=== PATIENT | female | born 1930 | race Caucasian/White ===

== ENCOUNTER 2017-09-14 00:52 | Emergency (ER) | payer MEDICARE ==
--- NOTE | 2017-09-14 01:34 | ED ---
Adult Trauma - HPI Summary HPI Summary: 86-year-old female with the past medical history of dementia presents to the fall today. fall was unwitnessed. She is on Lovenox. She is denying any pain at this time. She is denying any chest pain shortness breath. She states she does not know why she fell. [facility] sent her up due to being on blood thinners. No belly pain. She denies any back pain or neck pain. She has history of falls. She is at her baseline neurologically. - History of Current Complaint Chief Complaint: EDGeneral Stated Complaint: FALL Time Seen by Provider: 09/14/17 01:15 Pain Intensity: 0 - Additional Pertinent History Primary Care Physician: [id number] - Allergy/Home Medications Allergies/Adverse Reactions: Allergies Allergy/AdvReac Type Severity Reaction Status Date / Time No Known Allergies Allergy Verified 02/03/16 00:17 PMH/Surg Hx/FS Hx/Imm Hx Endocrine/Hematology History: Reports: Hx Anticoagulant Therapy Denies: Hx Thyroid Disease Cardiovascular History: Reports: Hx Hypercholesterolemia, Hx Hypertension, Hx Valvular Heart Disease - MVP Denies: Hx Coronary Artery Disease, Hx Myocardial Infarction History: Reports: Hx Renal Disease - abnormal gfr's Denies: Hx Chronic Renal Failure Sensory History: Denies: Hx Contacts or Glasses, Hx Hearing Aid Opthamlomology History: Denies: Hx Contacts or Glasses Neurological History: Reports: Hx Dementia Psychiatric History: Reports: Hx Depression - Cancer History Hx Chemotherapy: No Hx Radiation Therapy: No - Surgical History Surgery Procedure, Year, and Place: NOT TO AFFECTED AREA - Immunization History Date of Tetanus Vaccine: utd Date of Influenza Vaccine: 2015 Infectious Disease History: No Infectious Disease History: Denies: Traveled Outside the [place] in Last 30 Days - Family History Known Family History: Positive: Other Family History: Hx Colon CA in sister - Social History Alcohol Use: None Substance Use Type: Reports: None Hx Tobacco Use: Yes Smoking Status (MU): Former Smoker Type: Cigarettes Review of Systems Negative: Fever Negative: Chest Pain Negative: Shortness Of Breath Negative: Abdominal Pain All Other Systems Reviewed And Are Negative: Yes Physical Exam Triage Information Reviewed: Yes Vital Signs On Initial Exam: Initial Vitals Temp Pulse Resp BP Pulse Ox 98.4 F 88 16 144/75 93 09/14/17 00:54 09/14/17 00:54 09/14/17 00:54 09/14/17 00:54 09/14/17 00:54 Vital Signs Reviewed: Yes Appearance: Positive: Well-Appearing Skin: Positive: Warm, Dry Head/Face: Positive: Normal Head/Face Inspection, Other - No step off, raccoon eyes, ramirez sign Eyes: Positive: Normal, EOMI, SAMANTHA, Conjunctiva Clear ENT: Positive: Pharynx normal Respiratory/Lung Sounds: Positive: Clear to Auscultation, Breath Sounds Present Cardiovascular: Positive: Normal, RRR Musculoskeletal: Positive: Normal Neurological: Positive: Sensory/Motor Intact, CN Intact II-III. Negative: Alert , Oriented to Person Place, Time Psychiatric: Positive: Normal Diagnostics - Vital Signs Vital Signs Temp Pulse Resp BP Pulse Ox 09/14/17 00:54 98.4 F 88 16 144/75 93 - Laboratory Lab Statement: Any lab studies that have been ordered have been reviewed, and results considered in the medical decision making process. Adult Trauma Course/Dx - Course Course Of Treatment: 86-year-old female with the past medical history of dementia presents to the fall today. fall was unwitnessed. She is on Lovenox. She is denying any pain at this time. She is denying any chest pain shortness breath. She states she does not know why she fell. [facility] sent her up due to being on blood thinners. No belly pain. She denies any back pain or neck pain. She has history of falls. She is at her baseline neurologically. On exam patient is alert to person and place not oriented to time. Has normal neuro exam. nontender neck and back. She has full range of motion of hips. Nontender chest abdomen. patient signed out to dr araiza pending CT of brain and neck for disposition - Diagnoses Differential Diagnosis/HQI/PQRI: Positive: Contusion(s), Fracture, Dislocation Provider Diagnoses: Fall Discharge - Sign-Out/Discharge Documenting (check all that apply): Sign-Out Patient Signing out patient TO: Radha Araiza - Discharge Plan Patient Education Materials: Fall Prevention for Older Adults (ED) Referrals: No Primary Care Phys,NOPCP [Primary Care Provider] - Additional Instructions: Follow up with primary about falls within 5 days Take Tylenol as needed for pain every 6 hours Return to ED if develop any new or worsening symptoms
--- NOTE | 2017-09-14 03:52 | ED ---
Progress - Progress Note Progress Note: CT BRAIN: IMPRESSION: 1. NO CT EVIDENCE FOR AN ACUTE INTRACRANIAL PROCESS. 2. PERIVENTRICULAR AND SUBCORTICAL WHITE MATTER CHANGES, WHICH ARE LIKELY THE SEQUELA OF CHRONIC SMALL VESSEL ISCHEMIC INJURY. GCS: 14 CT CERVICAL SPINE: IMPRESSION: 1. NO FRACTURE IN THE CERVICAL SPINE. 2. C5-C6: MINIMAL RIGHT NEURAL FORAMINAL STENOSIS. 3. C6-C7: MODERATE TO SEVERE RIGHT NEURAL FORAMINAL STENOSIS. Course/Dx - Course Course Of Treatment: 86-year-old female with the past medical history of dementia presents to the fall today. fall was unwitnessed. She is on Lovenox. She is denying any pain at this time. She is denying any chest pain shortness breath. She states she does not know why she fell. [facility]. No belly pain. She denies any back pain or neck pain. She has history of falls. She is at her baseline neurologically. On exam patient is alert to person and place not oriented to time. Has normal neuro exam. nontender neck and back. She has full range of motion of hips. Nontender chest abdomen. patient signed out to dr alford pending CT of brain and neck for disposition - Diagnoses Provider Diagnoses: Fall, Anticoagulant long-term use, Dementia Discharge - Sign-Out/Discharge Documenting (check all that apply): Patient Departure - DISCHARGE - Discharge Plan Condition: Stable Disposition: HOME Patient Education Materials: Fall Prevention for Older Adults (ED) Referrals: Loreto Perdomo NP [Nurse Practitioner] - 5 Days Additional Instructions: Follow up with primary about falls within 5 days Take Tylenol as needed for pain every 6 hours Return to ED if develop any new or worsening symptoms
[2017-09-14 04:28] VITALS: BP 147/74
--- NOTE | 2017-09-14 08:56 | RAD ---
HISTORY: fall, on lovenox COMPARISONS: None TECHNIQUE: Multiple contiguous axial CT scans were obtained of the head without intravenous contrast. FINDINGS: HEMORRHAGE/INFARCT: There is no hemorrhage or acute infarct. MASSES/SHIFT: There is no mass or shift. EXTRA-AXIAL SPACES: There are no extra-axial fluid collections. SULCI AND VENTRICLES: There is diffuse and proportional enlargement of the sulci and ventricles. CEREBRUM: There is hypoattenuation of the periventricular and subcortical white matter. BRAINSTEM: There are no focal parenchymal abnormalities. CEREBELLUM: There are no focal parenchymal abnormalities. VESSELS: The vessels are grossly normal. PARANASAL SINUSES: The paranasal sinuses are clear. ORBITS: The orbits are unremarkable. BONES AND SOFT TISSUE: No bone or soft tissue abnormalities are noted. OTHER: None IMPRESSION: NO ACUTE INTRACRANIAL PATHOLOGY. DIFFUSE INVOLUTIONAL CHANGE WITH CHRONIC SMALL VESSEL ISCHEMIC CHANGES. R0
--- NOTE | 2017-09-14 09:10 | RAD ---
HISTORY: fall, no other history is provided COMPARISONS: August 14, 2017 TECHNIQUE: Multiple contiguous axial CT scans were obtained of the cervical spine without intravenous contrast, with coronal and sagittal multiplanar reformations. FINDINGS: BRAIN: The visualized brain is unremarkable CENTRAL CANAL: Evaluation of the central canal is limited on CT technique; however, there is no obvious canalicular mass or epidural hemorrhage. ALIGNMENT: There is straightening with reversal of the normal cervical lordosis. There is trace anterolisthesis of C3 on C4 and C4 on C5. VERTEBRAL BODIES: There is diffuse osteopenia. There is no displaced fracture. There is anterolateral marginal osteophyte formation with reactive endplate changes at C5-C6 and C6-C7. JOINTS: There is uncovertebral and facet osteoarthritis. MUSCULATURE: Unremarkable INTERVERTEBRAL DISCS: There is diffuse loss of intervertebral disc height. AXIAL IMAGES: On axial images, there is neural foraminal narrowing bilaterally at C5-C6 and C6-C7. There is no osseous central canal stenosis. SOFT TISSUES: The visualized soft tissues of the neck are unremarkable. The prevertebral fat stripe is preserved. OTHER: None. IMPRESSION: 1. OSTEOPENIA. 2. DEGENERATIVE DISC DISEASE AND OSTEOARTHRITIS. 3. NO ACUTE OSSEOUS INJURY TO THE CERVICAL SPINE. R0
== END 2017-09-14 04:20 | disposition home or self-care (01) ==
LOC: ED 00:52
DX: Z04.3 Encounter for examination and observation following other accident (principal); M85.88 Other specified disorders of bone density and structure, other site; M50.30 Other cervical disc degeneration, unspecified cervical region; F03.90 Unspecified dementia, unspecified severity, without behavioral disturbance, psychotic disturbance, mood disturbance, and anxiety; Z79.01 Long term (current) use of anticoagulants; Z80.0 Family history of malignant neoplasm of digestive organs; Z87.891 Personal history of nicotine dependence
CPT/HCPCS: 70450; 72125; 99283

== ENCOUNTER 2018-05-12 10:00 | Emergency (ER) | payer MEDICARE ==
[2018-05-12] MEDS ORDERED: ED Piperacillin/Tazobac 3.375 3.375 GM/100 ML PREMIX.SET IVPB ONE (10:09)
[2018-05-12] MEDS ORDERED: ceFAZolin 2 GM in NS PREMIX(*) 2 GM/100 ML BAG IVPB ONE (10:09)
[2018-05-12] MEDS ORDERED: NS 0.9% 1000 ML** 1,000 ML IV.FLUID IV ONE (10:17)
[2018-05-12 10:39] LABS: ABS Basophils 0 10^3/ul (0-0.2); ABS Eosinophils 0.2 10^3/ul (0-0.6); ABS Monocytes 0.4 10^3/ul (0-0.8); ABS Neutrophils 3.8 10^3/ul (1.5-7.7); ABS Nucleated RBC 0 10^3/ul; Eosinophil % 3.9 %; Hematocrit 34 % (33-41); Hemoglobin 10.8 g/dL (12.0-16.0); Lymphocyte % 18.8 %; Mean Corpuscular HGB Conc 32 g/dL (31-36); Mean Corpuscular Hemoglobin 29 pg (27-31); Mean Corpuscular Volume 89 fL (80-97); Mean Platelet Volume 8.8 fL (7.4-10.4); Nucleated Red Blood Cells % 0.2; Platelet Count 137 10^3/uL (150-450); Red Blood Count 3.77 10^6 /uL (3.70-4.87); Red Cell Distribution Width 20 % (10.5-15); White Blood Count 5.4 10^3/uL (3.5-10.8)
[2018-05-12 10:48] LABS: INR 1.06 (0.77-1.02)
[2018-05-12 10:55] LABS: Albumin 2.1 g/dL (3.2-5.2); Albumin/Globulin Ratio 0.8 (1-3); BUN/Creatinine Ratio 16.4 (8-20); Calcium 7.4 mg/dL (8.6-10.3); EGFR African American 100.7 (>60); EGFR Non-African American 83.3 (>60); Globulin 2.6 g/dL (2-4); Potassium 3.4 mmol/L (3.5-5.0); Total Bilirubin 0.3 mg/dL (0.2-1.0); Total Protein 4.7 g/dL (6.4-8.9)
--- NOTE | 2018-05-12 11:17 | ED ---
HPI Cardiac - HPI Summary HPI Summary: Patient is an 87-year-old female presenting to the ED from [facility] with family at bedside. Family states they were called early this morning as patient was being transported via EMS to the ED for low BP. It was not told how low this was, however they stated "she should not be talking." On arrival, she is noted to have a normal BP at 126/52. She was also noted to be 99.2 on arrival. Respirations 26, 96% on room air and 76 HR. patient denies any symptoms. Patient denies cough, CP, SOB, urinary symptoms, back pain, abdominal pain, headache, fatigue, weakness. She endorses her normal amount of fatigue and family states she is acting at her baseline. - History of Current Complaint Chief Complaint: EDGeneral Stated Complaint: LOW BP PER EMS Hx Obtained From: Patient, Family/Ux Manager Onset/Duration: Started Hours Ago Timing: Constant Initial Severity: Moderate Current Severity: None Pain Intensity: 0 Pain Scale Used: 0-10 Numeric Chest Pain Radiates: No Aggravating Factor(s): Nothing Alleviating Factor(s): Nothing Associated Signs and Symptoms: Positive: Negative Related History: Healthcare Acquired Pneumonia: Lives at [facility] - Additional Pertinent History Primary Care Physician: [id number] - Allergy/Home Medications Allergies/Adverse Reactions: Allergies Allergy/AdvReac Type Severity Reaction Status Date / Time No Known Allergies Allergy Verified 05/12/18 10:07 PMH/Surg Hx/FS Hx/Imm Hx Previously Healthy: Yes Endocrine/Hematology History: Reports: Hx Anticoagulant Therapy Denies: Hx Thyroid Disease Cardiovascular History: Reports: Hx Hypercholesterolemia, Hx Hypertension, Hx Valvular Heart Disease - MVP Denies: Hx Coronary Artery Disease, Hx Myocardial Infarction History: Reports: Hx Renal Disease - abnormal gfr's Denies: Hx Chronic Renal Failure Sensory History: Denies: Hx Contacts or Glasses, Hx Hearing Aid Opthamlomology History: Denies: Hx Contacts or Glasses Neurological History: Reports: Hx Dementia Psychiatric History: Reports: Hx Depression - Cancer History Hx Chemotherapy: No Hx Radiation Therapy: No - Surgical History Surgery Procedure, Year, and Place: NOT TO AFFECTED AREA - Immunization History Date of Tetanus Vaccine: utd Date of Influenza Vaccine: 2015 Hx Pertussis Vaccination: Yes Immunizations Up to Date: Yes Infectious Disease History: No Infectious Disease History: Denies: Traveled Outside the [place] in Last 30 Days - Family History Family History: Hx Colon CA in sister - Social History Occupation: Unemployed Lives: At [facility] Alcohol Use: None Hx Substance Use: No Substance Use Type: Reports: None Hx Tobacco Use: Yes Smoking Status (MU): Former Smoker Type: Cigarettes Review of Systems Constitutional: Negative Negative: Fever, Chills, Fatigue, Skin Diaphoresis Negative: Palpitations, Chest Pain Negative: Shortness Of Breath, Cough Genitourinary: Negative Positive: no symptoms reported, see HPI Negative: Arthralgia, Myalgia Skin: Negative Neurological: Negative All Other Systems Reviewed And Are Negative: Yes Physical Exam Triage Information Reviewed: Yes Vital Signs On Initial Exam: Initial Vitals Temp Pulse Resp BP Pulse Ox 99.2 F 78 26 126/52 96 05/12/18 10:07 05/12/18 10:07 05/12/18 10:07 05/12/18 10:07 05/12/18 10:07 Vital Signs Reviewed: Yes Appearance: Positive: Well-Appearing, Well-Nourished Skin: Positive: Warm, Skin Color Reflects Adequate Perfusion Head/Face: Positive: Normal Head/Face Inspection Eyes: Positive: EOMI, SAMANTHA, Conjunctiva Clear Neck: Positive: Supple, No Lymphadenopathy Respiratory/Lung Sounds: Positive: Breath Sounds Present Cardiovascular: Positive: Normal, RRR, Pulses are Symmetrical in both Upper and Lower Extremities Musculoskeletal: Positive: Normal, Strength/ROM Intact Neurological: Positive: Speech Normal Psychiatric: Positive: Normal, Affect/Mood Appropriate AVPU Assessment: Alert - Medical Diagnostics - Vital Signs Vital Signs Temp Pulse Resp BP Pulse Ox 05/12/18 11:12 98.3 F 05/12/18 11:09 74 20 138/57 98 05/12/18 11:00 80 18 98 05/12/18 10:12 72 23 05/12/18 10:07 99.2 F 78 26 126/52 96 - Laboratory Lab Results: Lab Results 05/12/18 05/12/18 05/12/18 Range/Units 10:31 10:31 10:31 WBC 5.4 (3.5-10.8) 10^3/uL RBC 3.77 (3.70-4.87) 10^6 /uL Hgb 10.8 L (12.0-16.0) g/dL Hct 34 (33-41) % MCV 89 (80-97) fL MCH 29 (27-31) pg MCHC 32 (31-36) g/dL RDW 20 H (10.5-15) % Plt Count 137 L (150-450) 10^3/uL MPV 8.8 (7.4-10.4) fL Neut % (Auto) 69.3 % Lymph % (Auto) 18.8 % [place] % (Auto) 7.4 % Eos % (Auto) 3.9 % Baso % (Auto) 0.6 % Absolute Neuts (auto) 3.8 (1.5-7.7) 10^3/ul Absolute Lymphs (auto) 1.0 (1.0-4.8) 10^3/ul Absolute Monos (auto) 0.4 (0-0.8) 10^3/ul Absolute Eos (auto) 0.2 (0-0.6) 10^3/ul Absolute Basos (auto) 0 (0-0.2) 10^3/ul Absolute Nucleated RBC 0 10^3/ul Nucleated RBC % 0.2 INR (Anticoag Therapy) (0.77-1.02) Sodium 140 (135-145) mmol/L Potassium 3.4 L (3.5-5.0) mmol/L Chloride 111 (101-111) mmol/L Carbon Dioxide 26 (22-32) mmol/L Anion Gap 3 (2-11) mmol/L BUN 11 (6-24) mg/dL Creatinine 0.67 (0.51-0.95) mg/dL Est GFR ( Amer) 100.7 (>60) Est GFR (Non-Af Amer) 83.3 (>60) BUN/Creatinine Ratio 16.4 (8-20) Glucose 109 H (70-100) mg/dL Lactic Acid 1.6 (0.5-2.0) mmol/L Calcium 7.4 L (8.6-10.3) mg/dL Total Bilirubin 0.30 (0.2-1.0) mg/dL AST 12 L (13-39) U/L ALT 3 L (7-52) U/L Alkaline Phosphatase 53 (34-104) U/L Total Protein 4.7 L (6.4-8.9) g/dL Albumin 2.1 L (3.2-5.2) g/dL Globulin 2.6 (2-4) g/dL Albumin/Globulin Ratio 0.8 L (1-3) 05/12/18 Range/Units 10:31 WBC (3.5-10.8) 10^3/uL RBC (3.70-4.87) 10^6 /uL Hgb (12.0-16.0) g/dL Hct (33-41) % MCV (80-97) fL MCH (27-31) pg MCHC (31-36) g/dL RDW (10.5-15) % Plt Count (150-450) 10^3/uL MPV (7.4-10.4) fL Neut % (Auto) % Lymph % (Auto) % [place] % (Auto) % Eos % (Auto) % Baso % (Auto) % Absolute Neuts (auto) (1.5-7.7) 10^3/ul Absolute Lymphs (auto) (1.0-4.8) 10^3/ul Absolute Monos (auto) (0-0.8) 10^3/ul Absolute Eos (auto) (0-0.6) 10^3/ul Absolute Basos (auto) (0-0.2) 10^3/ul Absolute Nucleated RBC 10^3/ul Nucleated RBC % INR (Anticoag Therapy) 1.06 H (0.77-1.02) Sodium (135-145) mmol/L Potassium (3.5-5.0) mmol/L Chloride (101-111) mmol/L Carbon Dioxide (22-32) mmol/L Anion Gap (2-11) mmol/L BUN (6-24) mg/dL Creatinine (0.51-0.95) mg/dL Est GFR ( Amer) (>60) Est GFR (Non-Af Amer) (>60) BUN/Creatinine Ratio (8-20) Glucose (70-100) mg/dL Lactic Acid (0.5-2.0) mmol/L Calcium (8.6-10.3) mg/dL Total Bilirubin (0.2-1.0) mg/dL AST (13-39) U/L ALT (7-52) U/L Alkaline Phosphatase (34-104) U/L Total Protein (6.4-8.9) g/dL Albumin (3.2-5.2) g/dL Globulin (2-4) g/dL Albumin/Globulin Ratio (1-3) Result Diagrams: 05/12/18 10:31 05/12/18 10:31 Lab Statement: Any lab studies that have been ordered have been reviewed, and results considered in the medical decision making process. Disposition - Course Course Of Treatment: During this patient was treated, she is evaluated for hypotension. A chest x-ray obtained yesterday which showed a possible pneumonia. She was sent here today for further evaluation of her pneumonia and hypotension. On arrival, patient was not hypotensive. Patient was at 99.2, 78 , respirations 26, 126/52 and satting at 96% on room air. Patient states she is feeling at her baseline and denies any SOB, CP, cough or congestion. Chest x -ray was completed which shows patchy bibasilar infiltrates. While in the ED she is given Zosyn and capsule as well as 1 L NS. Initially ordered 1700 for septic workup, however BNP is elevated and there appears to be pulmonary edema throughout. She is given Lasix 20 mg IV. She is feeling much improved and family is okay with her going back to cardiac coverage. I have asked the hospitalist team to consult as well. It is placed on her discharge paperwork that she will be given Augmentin twice daily 7 days. This will be ordered by the ordering physician or provider over at [facility]. - Differential Dx - Cardiopulmonary Differential Diagnoses - Cardiopulmonary: Other - Pneumonia, pulmonary edema, shortness of breath, hypotension - Diagnoses Provider Diagnoses: Pulmonary edema, Pneumonia - Critical Care Time Critical Care Time: 30-74 min Discharge - Sign-Out/Discharge Documenting (check all that apply): Patient Departure Patient Received Moderate/Deep Sedation with Procedure: No - is - Discharge Plan Condition: Stable Disposition: HOME Prescriptions: Amoxicillin/Clavulanate TAB* [Augmentin TAB 875*] 875 mg PO BID #14 tab Patient Education Materials: Pulmonary Edema (ED), Pneumonia (ED) Referrals: Sue Chang DO [Primary Care Provider] - Additional Instructions: Patient will take augmentin twice daily x 7 days If symptoms worsen - return to the ED - Billing Disposition and Condition Condition: STABLE Disposition: Home
[2018-05-12] MEDS ORDERED: Amoxicillin/Clavulanate TAB* 875 MG PO ONE (11:59)
[2018-05-12] MEDS ORDERED: Albuterol/Ipratropium NEB.SOL* Albuterol 2.5 MG/Ipratropium 0.5 MG 3 ML INH ONE (11:59)
[2018-05-12] MEDS ORDERED: Furosemide IV* 10 MG/ML 2 ML VIAL (20 MG) IV ONE (12:18)
--- NOTE | 2018-05-12 12:32 | CONSULT ---
Subjective Date of Service: 05/12/18 Interval History: This is an 87 year old female patient with history of dementia, PE, HTN and diastolic dysfunction that presented to the ED from [facility] when staff found her BP to be low with systolics in the 70s. There was also a report from a CXR that had questionable findings of pneumonia. The patient however, was completely asymptomatic. She was alert with no complaints of dizziness, no tachycardia, no dyspnea, no fever, no cough. She does have a diffuse body rash that she is following with Dr. Bee for. We are asked to evaluate the patient in the ED for medical consultation. Review of Systems - Measurements Intake and Output: Intake and Output Last 24 Hours 05/10/18 05/11/18 05/12/18 05/13/18 06:59 06:59 06:59 06:59 Intake Total 1100 Balance 1100 Weight 123 lb Intake: IV Fluids 1100 - Review of Systems Constitutional Symptoms: Negative: Weight Gain, Weight Loss, Weakness, Fatigue, Fever, Night Sweats, Unexplained Falls, Other Dermatology: Positive: Rash Negative: Normal, Skin Lesions, Cancer, Skin Lumps, Other HEENT: Negative: Normal, Change in Hearing, Vertigo, Dental Problems, Tinnitus, Sinus Problem, Other Eyes: Negative: Normal, Change in Vision, Double Vision, Eye Pain, Glaucoma, Cataract, Contacts or Glasses, Other Thyroid: Negative: Normal, Goiter, Thyroid Nodule, Cold Intolerance, Heat Intolerance , Sweatiness, Tremor, Frequent Defecation, Constipation, Palpitations, Primary Hypothyroidism, Primary Hyperthyroidism, Weight Loss, Weight Gain, Change in Skin/Hair, Change in Menstruation, Radiation Exposure, Other Pulmonary: Negative: Normal, Cough, Sputum, Hemoptysis, Wheezing, Respiratory Distress, Shortness of Breath, COPD, Asthma, Exercise Intolerance, Home Oxygen, Other Cardiology: Negative: Normal, Chest Pain, Shortness of Breath, Palpitations, Swelling of Ankles, Peripheral Vascular Dis, Edema, Faintness, Syncope, Claudication, Proximal NocturnalDyspnea, Orthopnoea, Other Gastroenterology: Negative: Normal, Abdominal Pain, Nausea, Vomiting, Anorexia, Indigestion, Difficulty Swallowing, Heartburn, Constipation, Diarrhea, Blood in Stools, Change in Bowel Habits, Haematemesis, Melena, Other Genital - Urinary: Positive: Other - incontinence Negative: Normal, Dysuria, Hematuria, Polyuria, Nocturia Musculoskeletal: Negative: Joint Pain, Joint Stiffness, Arthritis, Osteoporosis, Low Back Pain , Sciatica, Joint Deformities, Kyphoscoliosis, Other Endocrinology: Negative: Normal, Thyroid Problems, Adrenal Problems, Gonadal Problems, Family Hx Endocrine Disorders, Obesity, Diabetes Mellitus, Hyperglycemia, Hx Hypoglycemia, Diabetic Foot Ulcers, Calluses, Hirsutism, Menstral Abnormalities , Polydipsia, Polyuria, Gonadal Problems, Gynecomastia, Pituitary disease, Other Neurology: Positive: Change in Memory Negative: Normal, Headache, Migraines, Change in Vision, Diplopia, Dizziness , Change in Balancing, Change in Coordination, Change in Speech, Change in Sphincter Function, Change in Walking, Numbness\Paresthesiae, Unexplained Weakness, Hx of Stroke\TIA, Hx of Seizures, Other Objective Vital Signs - 8 hr 05/12/18 05/12/18 05/12/18 10:07 10:12 11:00 Temperature 99.2 F Pulse Rate 78 72 80 Respiratory 26 23 18 Rate Blood Pressure 126/52 (mmHg) O2 Sat by Pulse 96 98 Oximetry 05/12/18 05/12/18 11:09 11:12 Temperature 98.3 F Pulse Rate 74 Respiratory 20 Rate Blood Pressure 138/57 (mmHg) O2 Sat by Pulse 98 Oximetry Oxygen Devices in Use Now: None Appearance: Awake, alert, NAD Eyes: No Scleral Icterus, PERRLA Ears/Nose/Mouth/Throat: Mucous Membranes Moist Neck: NL Appearance and Movements; NL JVP, Trachea Midline Respiratory: Symmetrical Chest Expansion and Respiratory Effort, Clear to Auscultation Cardiovascular: NL Sounds; No Murmurs; No JVD, RRR, No Edema Abdominal: NL Sounds; No Tenderness; No Distention, No Hepatosplenomegaly Lymphatic: No Cervical Adenopathy Extremities: No Edema, No Clubbing, Cyanosis Skin: - - difusse body rash - no change per family Neurological: Alert and Oriented x 3 Nutrition: Taking PO's Result Diagrams: 05/12/18 10:31 05/12/18 10:31 Additional Lab and Data: Lab Results 05/12/18 05/12/18 05/12/18 Range/Units 10:31 10:31 10:31 WBC 5.4 (3.5-10.8) 10^3/uL RBC 3.77 (3.70-4.87) 10^6 /uL Hgb 10.8 L (12.0-16.0) g/dL Hct 34 (33-41) % MCV 89 (80-97) fL MCH 29 (27-31) pg MCHC 32 (31-36) g/dL RDW 20 H (10.5-15) % Plt Count 137 L (150-450) 10^3/uL MPV 8.8 (7.4-10.4) fL Neut % (Auto) 69.3 % Lymph % (Auto) 18.8 % Wilcox % (Auto) 7.4 % Eos % (Auto) 3.9 % Baso % (Auto) 0.6 % Absolute Neuts (auto) 3.8 (1.5-7.7) 10^3/ul Absolute Lymphs (auto) 1.0 (1.0-4.8) 10^3/ul Absolute Monos (auto) 0.4 (0-0.8) 10^3/ul Absolute Eos (auto) 0.2 (0-0.6) 10^3/ul Absolute Basos (auto) 0 (0-0.2) 10^3/ul Absolute Nucleated RBC 0 10^3/ul Nucleated RBC % 0.2 INR (Anticoag Therapy) (0.77-1.02) Sodium 140 (135-145) mmol/L Potassium 3.4 L (3.5-5.0) mmol/L Chloride 111 (101-111) mmol/L Carbon Dioxide 26 (22-32) mmol/L Anion Gap 3 (2-11) mmol/L BUN 11 (6-24) mg/dL Creatinine 0.67 (0.51-0.95) mg/dL Est GFR ( Amer) 100.7 (>60) Est GFR (Non-Af Amer) 83.3 (>60) BUN/Creatinine Ratio 16.4 (8-20) Glucose 109 H (70-100) mg/dL Lactic Acid 1.6 (0.5-2.0) mmol/L Calcium 7.4 L (8.6-10.3) mg/dL Total Bilirubin 0.30 (0.2-1.0) mg/dL AST 12 L (13-39) U/L ALT 3 L (7-52) U/L Alkaline Phosphatase 53 (34-104) U/L Total Protein 4.7 L (6.4-8.9) g/dL Albumin 2.1 L (3.2-5.2) g/dL Globulin 2.6 (2-4) g/dL Albumin/Globulin Ratio 0.8 L (1-3) / Range/Units 10:31 WBC (3.5-10.8) 10^3/uL RBC (3.70-4.87) 10^6 /uL Hgb (12.0-16.0) g/dL Hct (33-41) % MCV (80-97) fL MCH (27-31) pg MCHC (31-36) g/dL RDW (10.5-15) % Plt Count (150-450) 10^3/uL MPV (7.4-10.4) fL Neut % (Auto) % Lymph % (Auto) % Wilcox % (Auto) % Eos % (Auto) % Baso % (Auto) % Absolute Neuts (auto) (1.5-7.7) 10^3/ul Absolute Lymphs (auto) (1.0-4.8) 10^3/ul Absolute Monos (auto) (0-0.8) 10^3/ul Absolute Eos (auto) (0-0.6) 10^3/ul Absolute Basos (auto) (0-0.2) 10^3/ul Absolute Nucleated RBC 10^3/ul Nucleated RBC % INR (Anticoag Therapy) 1.06 H (0.77-1.02) Sodium (135-145) mmol/L Potassium (3.5-5.0) mmol/L Chloride (101-111) mmol/L Carbon Dioxide (22-32) mmol/L Anion Gap (2-11) mmol/L BUN (6-24) mg/dL Creatinine (0.51-0.95) mg/dL Est GFR ( Amer) (>60) Est GFR (Non-Af Amer) (>60) BUN/Creatinine Ratio (8-20) Glucose (70-100) mg/dL Lactic Acid (0.5-2.0) mmol/L Calcium (8.6-10.3) mg/dL Total Bilirubin (0.2-1.0) mg/dL AST (13-39) U/L ALT (7-52) U/L Alkaline Phosphatase (34-104) U/L Total Protein (6.4-8.9) g/dL Albumin (3.2-5.2) g/dL Globulin (2-4) g/dL Albumin/Globulin Ratio (1-3) Diagnostic Imaging: Patient Name: BRENTON TAVAREZ Medical Record#: [id number] Ordering Physician: Janneth BARROS Acct.#: [id number] : 1930 Age: 87 Sex: F Location: EMERGENCY DEPARTMENT Exam Date: 05/12/181006 ADM Status: REG ER Order Information: CHEST PA & LAT 2 VWS Accession Number: [id number] CPT: 45379 INDICATION: Concern for pneumonia COMPARISON: There are no relevant prior studies available for comparison. TECHNIQUE: PA and lateral views of the chest were obtained. FINDINGS: There are patchy bilateral airspace opacities. No pleural effusion is identified. The cardiomediastinal silhouette is grossly unchanged. The mitral annulus is calcified. The bones are osteopenic. The upper abdominal contents are grossly unremarkable. IMPRESSION: 1. Bilateral patchy airspace opacities concerning for pneumonia. 2. Calcified mitral annulus. Assessment/Plan - Billing Assessment: this is a very pleasant 87 year old woman [facility] for asymptomatic hypotension and possible PNA. 1. Hypotension - BP recorded in ER has been completely normal, suspect staff using incorrect BP cuff size - Did receive one liter of IVF initially 2. Questionable PNA - Evaluated CXR with ED physician and PA, xray does appear to be more fluid than consolidation and patient has no fever, no cough, no sputum, no tachypnea or tachycardia, recommend coverage with Augmentin in case an early PNA is forming - Lungs are clear, patient is able to light flat, RA saturation is 96% - Patient last BNP was 388, slightly elevated at 721, reviewed cardiac ECHO from 2016, patient does have and cardiomyopathy with diastolic dysfunction and pulmonary hypertension - Recommend 1 dose lasix IV given that IVF were given in ED 3. Dementia - continue donepezil and ativan PRN Admission Status and Rationale: - Disposition: Discharge back to [facility] Thank you for this consultation.
[2018-05-12 13:30] VITALS: BP 94/47
== END 2018-05-12 13:31 | disposition home or self-care (01) ==
LOC: ED 10:00
DX: I95.9 Hypotension, unspecified (principal); R91.8 Other nonspecific abnormal finding of lung field; F03.90 Unspecified dementia, unspecified severity, without behavioral disturbance, psychotic disturbance, mood disturbance, and anxiety; R21 Rash and other nonspecific skin eruption; I10 Essential (primary) hypertension; Z86.711 Personal history of pulmonary embolism
CPT/HCPCS: 36415; 71046; 80053; 83605; 83880; 84484; 85025; 85610; 87040; 96361; 96374; 96375; 99284; A9270-GY; J0690; J1940; J2543

== ENCOUNTER 2018-05-16 03:45 | Emergency (ER) | payer MEDICARE ==
[2018-05-16] MEDS ORDERED: Haloperidol INJ IV/IM* 5 MG/ML AMP IM ONE (04:52)
[2018-05-16] MEDS ORDERED: LORazepam INJ* 2 MG/ML 1 ML VIAL IM ONE (04:53)
--- NOTE | 2018-05-16 04:56 | ED ---
Altered Mental Status - HPI Summary HPI Summary: This patient is an 87 year old F brought in by ambulance to [facility] with a chief complaint of confusion and agitation since earlier today. - History Of Current Complaint Chief Complaint: EDAltMentalStatus Stated Complaint: AMS PER EMS Time Seen by Provider: 05/16/18 04:48 Hx Obtained From: EMS Hx From Patient Unobtainable Due To: Dementia Onset/Duration: Still Present - Allergies/Home Medications Allergies/Adverse Reactions: Allergies Allergy/AdvReac Type Severity Reaction Status Date / Time No Known Allergies Allergy Verified 05/12/18 10:07 PMH/Surg Hx/FS Hx/Imm Hx Previously Healthy: No - LEVEL 5 CAVEAT: Patient has dementia. Endocrine/Hematology History: Reports: Hx Anticoagulant Therapy Denies: Hx Diabetes, Hx Thyroid Disease Cardiovascular History: Reports: Hx Hypercholesterolemia, Hx Hypertension, Hx Valvular Heart Disease - MVP Denies: Hx Coronary Artery Disease, Hx Myocardial Infarction, Hx Peripheral Vascular Disease History: Reports: Hx Renal Disease - abnormal gfr's Denies: Hx Chronic Renal Failure Musculoskeletal History: Denies: Hx Arthritis, Hx Osteoporosis Sensory History: Denies: Hx Cataracts, Hx Contacts or Glasses, Hx Glaucoma, Hx Hearing Aid Opthamlomology History: Denies: Hx Cataracts, Hx Contacts or Glasses, Hx Glaucoma Neurological History: Reports: Hx Dementia Denies: Hx Headaches, Hx Seizures, Hx Transient Ischemic Attacks (TIA) Psychiatric History: Reports: Hx Depression - Cancer History Hx Chemotherapy: No Hx Radiation Therapy: No - Surgical History Surgery Procedure, Year, and Place: NOT TO AFFECTED AREA - Immunization History Date of Tetanus Vaccine: utd Date of Influenza Vaccine: 2015 Immunizations Up to Date: Yes Infectious Disease History: No Infectious Disease History: Denies: Traveled Outside the [place] in Last 30 Days - Family History Known Family History: Positive: Unknown - LEVEL 5 CAVEAT: Patient has dementia. Family History: Hx Colon CA in sister - Social History Alcohol Use: None Hx Substance Use: No Substance Use Type: Reports: None Hx Tobacco Use: Yes Smoking Status (MU): Former Smoker Type: Cigarettes Review of Systems - ROS Summary Review of Systems Summary: LEVEL 5 CAVEAT: Patient has dementia. All Other Systems Reviewed And Are Negative: No Physical Exam - Summary Physical Exam Summary: LEVEL 5 CAVEAT: Patient has dementia. VITAL SIGNS: Reviewed. GENERAL: Patient is an elderly FEMALE who is lying comfortable in the stretcher. Patient is not in any acute respiratory distress. HEAD AND FACE: No signs of trauma. No ecchymosis, hematomas or skull depressions. No sinus tenderness. EYES: PERRLA, EOMI x 2, No injected conjunctiva, no nystagmus. EARS: Hearing grossly intact. Ear canals and tympanic membranes are within normal limits. MOUTH: Oropharynx within normal limits. NECK: Supple, trachea is midline, no adenopathy, no JVD, no carotid bruit, no c- spine tenderness, neck with full ROM. CHEST: Symmetric, no tenderness at palpation LUNGS: Clear to auscultation bilaterally. No wheezing or crackles. CVS: Regular rate and rhythm, S1 and S2 present, no murmurs or gallops appreciated. ABDOMEN: Soft, non-tender. No signs of distention. No rebound no guarding, and no masses palpated. Bowel sounds are normal. EXTREMITIES: FROM in all major joints, no edema, no cyanosis or clubbing. NEURO: Alert to her name. Know that shes in [place]. Grossly non-focal, uncooperative SKIN: Dry and warm Triage Information Reviewed: Yes Vital Signs On Initial Exam: Initial Vitals Temp Pulse Resp BP Pulse Ox 98.5 F 76 14 131/57 93 05/16/18 03:48 05/16/18 03:48 05/16/18 03:48 05/16/18 03:48 05/16/18 03:48 Vital Signs Reviewed: Yes Completion Of Physical Exam Limited Due To: Dementia Diagnostics - Vital Signs Vital Signs Temp Pulse Resp BP Pulse Ox 05/16/18 03:48 98.5 F 76 14 131/57 93 - Laboratory Lab Statement: Any lab studies that have been ordered have been reviewed, and results considered in the medical decision making process. Re-Evaluation - Re-Evaluation 1 Re-Evaluation Time: 05:32 Change: Improved Comment: Pt is calmer. Said she is tired and would like to go to sleep. Symptoms likely secondary to dementia. Altered Mental Statu Course/Dx - Course Course Of Treatment: This patient is an 87 year old F brought in by ambulance to [facility] with a chief complaint of confusion and agitation since earlier today. During her re-eval: Pt is calmer. Said she is tired and would like to go to sleep. Symptoms likely secondary to dementia. Recommend increased PRN medication as needed. Patient will be D/C with a dx of dementia. - Diagnoses Provider Diagnoses: Dementia Discharge - Sign-Out/Discharge Documenting (check all that apply): Patient Departure - D/C home Patient Received Moderate/Deep Sedation with Procedure: No - Discharge Plan Condition: Stable Disposition: [facility] Patient Education Materials: Dementia (ED) Referrals: Sue Chang, [Primary Care Provider] - Additional Instructions: RETURN TO THE EMERGENCY DEPARTMENT FOR CHANGING OR WORSENING SYMPTOMS. FOLLOW UP WITH PCP IN 1-2 DAYS. We recommend increased PRN medication as needed. - Billing Disposition and Condition Condition: STABLE Disposition: Half-Way Facility - Attestation Statements Document Initiated by Scribe: Yes Documenting Scribe: Janak León Provider For Whom Ashlyne is Documenting (Include Credential): Jamee Finch MD Scribe Attestation: Janak Stone, scribed for Jamee Finch MD on 05/16/18 at 0552. Scribe Documentation Reviewed: Yes Provider Attestation: The documentation as recorded by the Janak troy accurately reflects the service I personally performed and the decisions made by Chan huang MD Status of Scribe Document: Viewed
[2018-05-16 06:21] VITALS: BP 109/66
== END 2018-05-16 06:44 ==
LOC: ED 03:45
DX: F03.90 Unspecified dementia, unspecified severity, without behavioral disturbance, psychotic disturbance, mood disturbance, and anxiety (principal); I10 Essential (primary) hypertension; I34.1 Nonrheumatic mitral (valve) prolapse; Z79.01 Long term (current) use of anticoagulants; Z87.891 Personal history of nicotine dependence
CPT/HCPCS: 96372; 99283; J1630; J2060

== ENCOUNTER 2018-05-20 00:07 | Emergency (ER) | payer MEDICARE ==
--- NOTE | 2018-05-20 00:32 | ED ---
Adult Trauma - HPI Summary HPI Summary: This patient is a 87 year old F brought in by ambulance to [facility] from [facility] due to increased falls per [facility] report. Patient reports minor fall but denies any injury and LOC. Patient denies neck pain, head trauma, and any other musculoskeletal pain. PMHx of dementia. Patients son who is power of retanned leather roller would like her sent back to [facility] unless there is an injury found during this visit. 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 Mechanism of Injury: Fall Loss of Consciousness: no loss of consciousness Onset/Duration: Started Minutes Ago Current Severity: None Pain Intensity: 0 Pain Scale Used: 0-10 Numeric Location: Other - none Aggravating Factor(s): Nothing Alleviating Factor(s): Nothing Associated Signs & Symptoms: Positive: Negative - Additional Pertinent History Primary Care Physician: SUSANA - Allergy/Home Medications Allergies/Adverse Reactions: Allergies Allergy/AdvReac Type Severity Reaction Status Date / Time No Known Allergies Allergy Verified 05/12/18 10:07 PMH/Surg Hx/FS Hx/Imm Hx Endocrine/Hematology History: Reports: Hx Anticoagulant Therapy Denies: Hx Diabetes, Hx Thyroid Disease Cardiovascular History: Reports: Hx Hypercholesterolemia, Hx Hypertension, Hx Valvular Heart Disease - MVP Denies: Hx Coronary Artery Disease, Hx Myocardial Infarction, Hx Peripheral Vascular Disease History: Reports: Hx Renal Disease - abnormal gfr's Denies: Hx Chronic Renal Failure Musculoskeletal History: Denies: Hx Arthritis, Hx Osteoporosis Sensory History: Denies: Hx Cataracts, Hx Contacts or Glasses, Hx Glaucoma, Hx Hearing Aid Opthamlomology History: Denies: Hx Cataracts, Hx Contacts or Glasses, Hx Glaucoma Neurological History: Reports: Hx Dementia Denies: Hx Headaches, Hx Seizures, Hx Transient Ischemic Attacks (TIA) Psychiatric History: Reports: Hx Depression - Cancer History Hx Chemotherapy: No Hx Radiation Therapy: No - Surgical History Surgery Procedure, Year, and Place: NOT TO AFFECTED AREA - Immunization History Date of Tetanus Vaccine: utd Date of Influenza Vaccine: 2015 Infectious Disease History: No Infectious Disease History: Denies: Traveled Outside the [place] in Last 30 Days - Family History Known Family History: Positive: Other Family History: Hx Colon CA in sister - Social History Alcohol Use: None Hx Substance Use: No Substance Use Type: Reports: None Hx Tobacco Use: Yes Smoking Status (MU): Former Smoker Type: Cigarettes Review of Systems Constitutional: Negative Negative: Arthralgia, Myalgia Negative: Syncope All Other Systems Reviewed And Are Negative: Yes Physical Exam - Summary Physical Exam Summary: Appearance: elderly woman laying on stretcher in no distress Skin: Warm, dry, Fairly diffuse dermatitis Eyes: sclera anicteric, no conjunctival pallor HEENT: mucous membranes moist, pharynx appears normal, no sign of head trauma Neck: Supple, nontender, patient is able to move neck without pain throughout full ROM Respiratory: Clear to auscultation, no signs of respiratory distress Cardiovascular: Normal S1, S2. No murmurs. Normal distal pulses in tibial and radial bilaterally. Abdomen: Soft, nontender, normal active bowel sounds present Musculoskeletal: Normal, Strength/ROM Intact, no signs of injury moves all four extremities without difficulty Neurological:, awake and alert, mentation is normal, speech is fluent and appropriate, answer questions appropriately although somewhat confused Psychiatric: affect is normal, does not appear anxious or depressed Triage Information Reviewed: Yes Vital Signs On Initial Exam: Initial Vitals Pulse Pulse Ox 81 90 05/20/18 00:12 05/20/18 00:12 Vital Signs Reviewed: Yes Diagnostics - Vital Signs Vital Signs Temp Pulse Resp BP Pulse Ox 05/20/18 00:15 98.3 F 80 18 115/60 94 05/20/18 00:13 84 115/60 94 05/20/18 00:12 81 90 - Laboratory Lab Statement: Any lab studies that have been ordered have been reviewed, and results considered in the medical decision making process. Adult Trauma Course/Dx - Course Course Of Treatment: 87 year old F brought in by ambulance to [facility] from [facility] due to increased falls per [facility] report. Patient reports minor fall but denies any injury and LOC. Patient denies neck pain, head trauma, and any other musculoskeletal pain. PMHx of dementia. Patients son who is power of retanned leather roller would like her sent back to [facility] unless there is an injury found during this visit. During exam no injuries are found and patient is alert and answers questions appropriately. Per sons request patient will be discharged back to [facility]. - Diagnoses Provider Diagnoses: Frequent falls Discharge - Sign-Out/Discharge Documenting (check all that apply): Patient Departure - discharge Patient Received Moderate/Deep Sedation with Procedure: No - Discharge Plan Condition: Good Disposition: HOME Patient Education Materials: Fall Prevention for Older Adults (ED) Referrals: Sue Chang DO [Primary Care Provider] - Additional Instructions: Maria L has no sign of a significant injury consequent to her fall. - Billing Disposition and Condition Condition: GOOD Disposition: Home - Attestation Statements Document Initiated by Scribe: Yes Documenting Scribe: Pushpa Clark Provider For Whom Dasia is Documenting (Include Credential): Kobe Lyle MD Scribe Attestation: Pushpa Stone, scribed for Kobe Lyle MD on 05/23/18 at 1832. Scribe Documentation Reviewed: Yes Provider Attestation: The documentation as recorded by the Pushpa troy accurately reflects the service I personally performed and the decisions made by Kobe huang MD Status of Scribe Document: Viewed
[2018-05-20 01:43] VITALS: BP 100/49
== END 2018-05-20 01:45 | disposition home or self-care (01) ==
LOC: ED 00:07
DX: Z91.81 History of falling (principal); F03.90 Unspecified dementia, unspecified severity, without behavioral disturbance, psychotic disturbance, mood disturbance, and anxiety; Z79.01 Long term (current) use of anticoagulants; Z87.891 Personal history of nicotine dependence
CPT/HCPCS: 99282

== ENCOUNTER 2018-05-22 21:34 | Emergency (ER) | payer MEDICARE ==
--- NOTE | 2018-05-22 22:08 | ED ---
Complex/Multi-Sys Presentation - HPI Summary HPI Summary: 87 year old female presents after fall today. She is a history of falls and dementia. According to the care home she had altered mental status and was screaming earlier today. Currently she is not voicing any complaints. There was a concern that she has a UTI as she has AMS with UTI. No fever. No cough. Denies any hip or back pain. No chest pain shortness breath or bowel pain. Able to move all extremities. she does not remember falling. does not remember what happened today but this is normal for her with dementia. - History Of Current Complaint Chief Complaint: EDGeneral Time Seen by Provider: 05/22/18 21:55 - Allergies/Home Medications Allergies/Adverse Reactions: Allergies Allergy/AdvReac Type Severity Reaction Status Date / Time No Known Allergies Allergy Verified 05/12/18 10:07 PMH/Surg Hx/FS Hx/Imm Hx Endocrine/Hematology History: Reports: Hx Anticoagulant Therapy Denies: Hx Diabetes, Hx Thyroid Disease Cardiovascular History: Reports: Hx Hypercholesterolemia, Hx Hypertension, Hx Valvular Heart Disease - MVP Denies: Hx Coronary Artery Disease, Hx Myocardial Infarction, Hx Peripheral Vascular Disease History: Reports: Hx Renal Disease - abnormal gfr's Denies: Hx Chronic Renal Failure Musculoskeletal History: Denies: Hx Arthritis, Hx Osteoporosis Sensory History: Denies: Hx Cataracts, Hx Contacts or Glasses, Hx Glaucoma, Hx Hearing Aid Opthamlomology History: Denies: Hx Cataracts, Hx Contacts or Glasses, Hx Glaucoma Neurological History: Reports: Hx Dementia Denies: Hx Headaches, Hx Seizures, Hx Transient Ischemic Attacks (TIA) Psychiatric History: Reports: Hx Depression - Cancer History Hx Chemotherapy: No Hx Radiation Therapy: No - Surgical History Surgery Procedure, Year, and Place: NOT TO AFFECTED AREA - Immunization History Date of Tetanus Vaccine: utd Date of Influenza Vaccine: 2015 Infectious Disease History: Unable to Obtain/Confirm Infectious Disease History: Denies: Traveled Outside the [place] in Last 30 Days - Family History Known Family History: Positive: Other Family History: Hx Colon [place] in sister - Social History Alcohol Use: None Hx Substance Use: No Substance Use Type: Reports: None Hx Tobacco Use: Yes Smoking Status (MU): Former Smoker Type: Cigarettes Review of Systems Negative: Fever Negative: Chest Pain Negative: Shortness Of Breath All Other Systems Reviewed And Are Negative: Yes Physical Exam Triage Information Reviewed: Yes Vital Signs On Initial Exam: Initial Vitals Temp Pulse Resp BP Pulse Ox 97.9 F 81 18 121/49 92 05/22/18 21:39 05/22/18 21:39 05/22/18 21:39 05/22/18 21:39 05/22/18 21:39 Vital Signs Reviewed: Yes Appearance: Positive: Well-Appearing Skin: Positive: Warm, Dry Head/Face: Positive: Normal Head/Face Inspection Eyes: Positive: Normal, EOMI, SAMANTHA, Conjunctiva Clear ENT: Positive: Normal ENT inspection, Pharynx normal, TMs normal Neck: Positive: Other: - nontender neck and back Respiratory/Lung Sounds: Positive: Clear to Auscultation, Breath Sounds Present Cardiovascular: Positive: Normal, RRR Abdomen Description: Positive: Nontender, Soft Bowel Sounds: Positive: Present Musculoskeletal: Positive: Normal, Strength/ROM Intact - arms and legs, Other - nonender hips Neurological: Positive: Sensory/Motor Intact, CN Intact II-III. Negative: Alert , Oriented to Person Place, Time - only to person Psychiatric: Positive: Normal - [place] Coma Scale Best Eye Response: 4 - Spontaneous Best Motor Response: 6 - Obeys Commands Best Verbal Response: 5 - Oriented Coma Scale Total: 15 Diagnostics - Vital Signs Vital Signs Temp Pulse Resp BP Pulse Ox 05/22/18 21:39 97.9 F 81 18 121/49 92 - Laboratory Result Diagrams: 05/22/18 22:13 05/22/18 22:13 Lab Statement: Any lab studies that have been ordered have been reviewed, and results considered in the medical decision making process. Complex Multi-Symp Course/Dx Course Of Treatment: 87 year old female presents after fall today. She is a history of falls and dementia. According to the care home she had altered mental status and was screaming earlier today. Currently she is not voicing any complaints. There was a concern that she has a UTI as she has AMS with UTI. No fever. No cough. Denies any hip or back pain. No chest pain shortness breath or bowel pain. Able to move all extremities. On exam she is at baseline mental status. Only thing patient voices is that "she does want to be here and wants to go home and she hates us all". Moving all extremities. nontender to hip and able to move both hips. No bruising noted to the head. white blood cell count normal. Urine shows no infection. We'll discharge back to care home. Patient understands and agrees with plan. - Diagnoses Differential Diagnoses/HQI/PQRI: Metabolic Abnormality, Urinary Tract Infection , Other - fall Provider Diagnoses: Fall Discharge - Sign-Out/Discharge Documenting (check all that apply): Patient Departure Patient Received Moderate/Deep Sedation with Procedure: No - Discharge Plan Condition: Good Disposition: NURSING HOME FACILITY Patient Education Materials: Fall Prevention for Older Adults (ED) Referrals: Sue Chang DO [Primary Care Provider] - Additional Instructions: urine no showing infection today Give tyenlol as needed for pain follow up with primary within 5 days Return to ED if develop any new or worsening symptoms - Billing Disposition and Condition Condition: GOOD Disposition: Residential Facility
[2018-05-22 22:21] LABS: ABS Basophils 0 10^3/ul (0-0.2); ABS Eosinophils 0.1 10^3/ul (0-0.6); ABS Lymphocytes 1.5 10^3/ul (1.0-4.8); ABS Monocytes 0.9 10^3/ul (0-0.8); ABS Neutrophils 7.7 10^3/ul (1.5-7.7); ABS Nucleated RBC 0 10^3/ul; Eosinophil % 0.8 %; Hematocrit 34 % (33-41); Hemoglobin 11.2 g/dL (12.0-16.0); Mean Corpuscular HGB Conc 33 g/dL (31-36); Mean Corpuscular Hemoglobin 29 pg (27-31); Mean Corpuscular Volume 90 fL (80-97); Mean Platelet Volume 8.1 fL (7.4-10.4); Nucleated Red Blood Cells % 0.1; Platelet Count 253 10^3/uL (150-450); Red Blood Count 3.82 10^6 /uL (3.70-4.87); Red Cell Distribution Width 20 % (10.5-15); White Blood Count 10.2 10^3/uL (3.5-10.8)
[2018-05-22 22:39] LABS: Albumin 2.8 g/dL (3.2-5.2); BUN/Creatinine Ratio 22.7 (8-20); Calcium 8.3 mg/dL (8.6-10.3); EGFR African American 102.5 (>60); EGFR Non-African American 84.7 (>60); Globulin 2.9 g/dL (2-4); Potassium 3.9 mmol/L (3.5-5.0); Total Bilirubin 0.4 mg/dL (0.2-1.0); Total Protein 5.7 g/dL (6.4-8.9)
[2018-05-22 23:11] LABS: Urine Appearance Clear; Urine Bilirubin Negative (Negative); Urine Blood Negative (Negative); Urine Color Yellow; Urine Glucose Negative (Negative); Urine Ketones Negative (Negative); Urine Nitrite Negative (Negative); Urine Protein 1+(30 mg/dL) (Negative); Urine Urobilinogen Negative (Negative)
[2018-05-22 23:24] LABS: Urine Bacteria Absent (Absent); Urine Red Blood Cell Trace(0-2/hpf) (Absent); Urine White Blood Cell Trace(0-5/hpf) (Absent)
[2018-05-23 00:02] VITALS: BP 119/55
== END 2018-05-23 00:06 ==
LOC: ED 21:34
DX: R41.82 Altered mental status, unspecified (principal); F03.90 Unspecified dementia, unspecified severity, without behavioral disturbance, psychotic disturbance, mood disturbance, and anxiety; W19.XXXA Unspecified fall, initial encounter; N39.0 Urinary tract infection, site not specified; Y92.129 Unspecified place in nursing home as the place of occurrence of the external cause; F32.9 Major depressive disorder, single episode, unspecified; Z87.891 Personal history of nicotine dependence; Z79.01 Long term (current) use of anticoagulants; I34.1 Nonrheumatic mitral (valve) prolapse
CPT/HCPCS: 36415; 80053; 81003; 81015; 85025; 87086; 99283

== ENCOUNTER → 2018-05-25 20:47 | Emergency (ER) | payer MEDICARE ==
--- NOTE | 2018-05-25 21:32 | ED ---
Lower Extremity - HPI Summary HPI Summary: Patient with history of dementia sent from [facility] for evaluation of possible hip pain after 2 unwitnessed falls today. [facility] states patient is alert to present, but is demented at baseline and ambulates with assistance at baseline. Patient herself denies any pain, does not remember falls. Patient also asking where she lives. - History of Current Complaint Chief Complaint: EDFall Stated Complaint: "FALL" PER EMS Time Seen by Provider: 05/25/18 21:05 Hx Obtained From: Patient Hx From Patient Unobtainable Due To: Dementia Mechanism Of Injury: Fall From A Standing Position Severity Currently: None Pain Intensity: 0 Pain Scale Used: 0-10 Numeric Associated Signs And Symptoms: Positive: Negative Able to Bear Weight: Yes - Allergies/Home Medications Allergies/Adverse Reactions: Allergies Allergy/AdvReac Type Severity Reaction Status Date / Time No Known Allergies Allergy Verified 05/12/18 10:07 PMH/Surg Hx/FS Hx/Imm Hx Endocrine/Hematology History: Reports: Hx Anticoagulant Therapy Denies: Hx Diabetes, Hx Thyroid Disease Cardiovascular History: Reports: Hx Hypercholesterolemia, Hx Hypertension, Hx Valvular Heart Disease - MVP Denies: Hx Coronary Artery Disease, Hx Myocardial Infarction, Hx Peripheral Vascular Disease History: Reports: Hx Renal Disease - abnormal gfr's Denies: Hx Chronic Renal Failure Musculoskeletal History: Denies: Hx Arthritis, Hx Osteoporosis Sensory History: Denies: Hx Cataracts, Hx Contacts or Glasses, Hx Glaucoma, Hx Hearing Aid Opthamlomology History: Denies: Hx Cataracts, Hx Contacts or Glasses, Hx Glaucoma Neurological History: Reports: Hx Dementia Denies: Hx Headaches, Hx Seizures, Hx Transient Ischemic Attacks (TIA) Psychiatric History: Reports: Hx Depression - Cancer History Hx Chemotherapy: No Hx Radiation Therapy: No - Surgical History Surgery Procedure, Year, and Place: NOT TO AFFECTED AREA - Immunization History Date of Tetanus Vaccine: utd Date of Influenza Vaccine: 2016 Infectious Disease History: Unable to Obtain/Confirm Infectious Disease History: Denies: Traveled Outside the [place] in Last 30 Days - Family History Known Family History: Positive: Other Family History: Hx Colon [place] in sister - Social History Alcohol Use: None Hx Substance Use: No Substance Use Type: Reports: None Hx Tobacco Use: Yes Smoking Status (MU): Former Smoker Type: Cigarettes Review of Systems Constitutional: Negative Eyes: Negative ENT: Negative Cardiovascular: Negative Respiratory: Negative Gastrointestinal: Negative Genitourinary: Negative Musculoskeletal: Negative Skin: Negative Neurological: Negative Psychological: Normal All Other Systems Reviewed And Are Negative: Yes Physical Exam - Summary Physical Exam Summary: No evidence of trauma, ecchymosis, erythema, warmth, swelling, deformity noted to head, face, mouth, neck, back, chest wall, abdomen, bilateral upper extremities, bilateral lower extremities. Patient flexes and extends bilateral upper extremities and bilateral lower extremities without any indication of pain. No pain with palpation of bilateral hips. Neuro exam normal. Triage Information Reviewed: Yes Vital Signs On Initial Exam: Initial Vitals Temp Pulse Resp BP Pulse Ox 98.2 F 82 18 146/75 96 05/25/18 21:05 05/25/18 21:05 05/25/18 21:05 05/25/18 21:05 05/25/18 21:05 Vital Signs Reviewed: Yes Appearance: Positive: Well-Appearing Skin: Positive: Warm Head/Face: Positive: Normal Head/Face Inspection Eyes: Positive: Normal ENT: Positive: Normal ENT inspection Dental: Negative: Dental Fracture @, Bleeding Neck: Positive: Supple Respiratory/Lung Sounds: Positive: Clear to Auscultation Cardiovascular: Positive: Normal Abdomen Description: Positive: Nontender Musculoskeletal: Positive: Normal Neurological: Positive: Normal Psychiatric: Positive: Normal AVPU Assessment: Alert - [place] Coma Scale Best Eye Response: 4 - Spontaneous Best Motor Response: 6 - Obeys Commands Best Verbal Response: 5 - Oriented Coma Scale Total: 15 Diagnostics - Vital Signs Vital Signs Temp Pulse Resp BP Pulse Ox 05/25/18 21:09 81 20 96 05/25/18 21:05 98.2 F 82 18 146/75 96 - Laboratory Lab Statement: Any lab studies that have been ordered have been reviewed, and results considered in the medical decision making process. Lower Extremity Course/Dx - Course Course Of Treatment: Patient with history of dementia sent from [facility] for evaluation of possible hip pain after 2 unwitnessed falls today. [facility] states patient is alert to present, but is demented at baseline and ambulates with assistance at baseline. Patient herself denies any pain, does not remember falls. Patient also asking where she lives. Physical exam:No evidence of trauma, ecchymosis, erythema, warmth, swelling, deformity noted to head, face, mouth, neck, back, chest wall, abdomen, bilateral upper extremities , bilateral lower extremities. Patient flexes and extends bilateral upper extremities and bilateral lower extremities without any indication of pain. No pain with palpation of bilateral hips. Neuro exam normal. Vital signs within normal limits. Physical exam unremarkable. Patient was ambulated with assistance which is consistent with patient's baseline. Patient returned to [facility]. - Diagnoses Provider Diagnoses: Fall Discharge - Sign-Out/Discharge Documenting (check all that apply): Patient Departure Patient Received Moderate/Deep Sedation with Procedure: No - Discharge Plan Condition: Stable Disposition: LONG-TERM FACILITY Referrals: Sue Chang DO [Primary Care Provider] - Additional Instructions: Follow-up with primary care. Return to the ED for any new or worsening symptoms. - Billing Disposition and Condition Condition: STABLE [facility]position: [facility]
[2018-05-25 22:09] VITALS: BP 185/101
== END ==
LOC: ED 20:47
DX: Z91.81 History of falling (principal); F03.90 Unspecified dementia, unspecified severity, without behavioral disturbance, psychotic disturbance, mood disturbance, and anxiety; I10 Essential (primary) hypertension; E78.00 Pure hypercholesterolemia, unspecified; I34.1 Nonrheumatic mitral (valve) prolapse; Z79.01 Long term (current) use of anticoagulants; N28.9 Disorder of kidney and ureter, unspecified; F32.9 Major depressive disorder, single episode, unspecified; Z87.891 Personal history of nicotine dependence
CPT/HCPCS: 99282